=== PATIENT | male | born 1990 ===

== ENCOUNTER 2021-11-28 07:24 | Emergency (ER) | payer OTHER ==
[2021-11-28] MEDS ORDERED: Sodium Chloride 0.9% 10 ML Syringe FLUSH PRN (07:51)
== END 2021-11-28 09:11 | disposition home or self-care (01) ==
LOC: JD.ED 07:24 → EEVIPCON 07:24 → JD.ED 09:11
DX: R07.89 Other chest pain (principal); R00.0 Tachycardia, unspecified
CPT/HCPCS: 36415; 71045; 71045-26; 84484; 93005; 99285-25